=== PATIENT | male | born 1965 | race Caucasian/White ===

== ENCOUNTER 2019-04-23 12:44 | Emergency (ER) | payer BC ==
[~2019-04-23] VITALS: Ht 185.4 cm; Wt 104.3 kg
[2019-04-23] MEDS ORDERED: IV NORMAL SALINE 1000ML BAG 1,000 ML IV ONE (13:15)
--- NOTE | 2019-04-23 13:18 | PHYS DOC ---
Adult General Chief Complaint Chief Complaint: NEAR SYNCOPE HPI HPI Patient is a 53 year old male patient without history of medical problem who presents via EMS with complaining of almost passing out. Patient state he was at work bathroom and tries to have a bowel movement and felt dizzy and lightheaded and near-syncope without loss of consciousness or seizure and asked his coworker to help him. Patient states he had constipation and bloody stools yesterday. EMS reported that he had low blood pressure and IV fluid was started. Patient had strong history of drinking alcohol and smoking cigarettes. Review of Systems Review of Systems Constitutional: Denies fever or chills [] Eyes: Denies change in visual acuity, redness, or eye pain [] HENT: Denies nasal congestion or sore throat [] Respiratory: Denies cough or shortness of breath [] Cardiovascular: No additional information not addressed in HPI [] GI: Denies abdominal pain, nausea, vomiting, diarrhea, reports constipation [] : Denies dysuria or hematuria [] Musculoskeletal: Denies back pain or joint pain [] Integument: Denies rash or skin lesions [] Neurologic: Denies headache, focal weakness or sensory changes [] Endocrine: Denies polyuria or polydipsia [] All other systems were reviewed and found to be within normal limits, except as documented in this note. Current Medications Current Medications Current Medications Medications (Trade) Dose Ordered Sig/Jaden Start Time Stop Time Status Last Admin Dose Admin Fentanyl Citrate (Fentanyl 2ml Vial) 50 mcg 1X ONCE 04/23/19 14:30 04/23/19 14:31 DC Magnesium Sulfate 50 ml @ 25 mls/hr 1X ONCE 04/23/19 14:30 04/23/19 16:21 DC 04/23/19 14:41 25 MLS/HR Sodium Chloride 1,000 ml @ 1,000 mls/hr 1X ONCE 04/23/19 13:15 04/23/19 14:14 DC 04/23/19 13:30 1,000 MLS/HR Allergies Allergies Allergies Coded Allergies Type Severity Reaction Last Updated Verified No Known Drug Allergies 04/23/19 No Physical Exam Physical Exam Constitutional: Well developed, well nourished, mild distress, non-toxic appearance. [] HENT: Normocephalic, atraumatic, bilateral external ears normal, oropharynx moist, no oral exudates, nose normal. [] Eyes: PERRLA, EOMI, conjunctiva normal, no discharge. [] Neck: Normal range of motion, no tenderness, supple, no stridor. [] Cardiovascular:Heart rate regular rhythm, no murmur [] Lungs & Thorax: Bilateral breath sounds clear to auscultation [] Abdomen: Bowel sounds normal, soft, no tenderness, no masses, no pulsatile masses. Patient refused rectal exam. Skin: Warm, dry, no erythema, no rash. [] Back: No tenderness, no CVA tenderness. [] Extremities: No tenderness, no cyanosis, no clubbing, ROM intact, no edema. [] Neurologic: Alert and oriented X 3, normal motor function, normal sensory function, no focal deficits noted. [] Psychologic: Affect normal, judgement normal, mood normal. [] Current Patient Data Vital Signs Vital Signs Date Time Temp Pulse Resp B/P (MAP) Pulse Ox O2 Delivery O2 Flow Rate FiO2 04/23/19 15:58 108 20 94 04/23/19 12:44 98.5 122/76 (91) Room Air 98.5 Lab Values Laboratory Tests Test 04/23/19 12:50 04/23/19 14:27 White Blood Count 11.4 x10^3/uL (4.0-11.0) H Red Blood Count 5.69 x10^6/uL (4.30-5.70) Hemoglobin 16.9 g/dL (13.0-17.5) Hematocrit 49.6 % (39.0-53.0) Mean Corpuscular Volume 87 fL (79-100) Mean Corpuscular Hemoglobin 30 pg (25-35) Mean Corpuscular Hemoglobin Concent 34 g/dL (31-37) Red Cell Distribution Width 13.3 % (11.5-14.5) Platelet Count 292 x10^3/uL (140-400) Neutrophils (%) (Auto) 75 % (31-73) H Lymphocytes (%) (Auto) 19 % (24-48) L Monocytes (%) (Auto) 5 % (0-9) Eosinophils (%) (Auto) 1 % (0-3) Basophils (%) (Auto) 1 % (0-3) Neutrophils # (Auto) 8.5 x10^3/uL (1.8-7.7) H Lymphocytes # (Auto) 2.1 x10^3/uL (1.0-4.8) Monocytes # (Auto) 0.5 x10^3/uL (0.0-1.1) Eosinophils # (Auto) 0.2 x10^3/uL (0.0-0.7) Basophils # (Auto) 0.1 x10^3/uL (0.0-0.2) Prothrombin Time 12.7 SEC (11.7-14.0) Prothrombin Time INR 1.0 (0.8-1.1) Sodium Level 139 mmol/L (136-145) Potassium Level 3.7 mmol/L (3.5-5.1) Chloride Level 102 mmol/L (98-107) Carbon Dioxide Level 28 mmol/L (21-32) Anion Gap 9 (6-14) Blood Urea Nitrogen 15 mg/dL (8-26) Creatinine 1.1 mg/dL (0.7-1.3) Estimated GFR (Cockcroft-Gault) 70.3 BUN/Creatinine Ratio 14 (6-20) Glucose Level 168 mg/dL (70-99) H Calcium Level 8.9 mg/dL (8.5-10.1) Magnesium Level 1.4 mg/dL (1.8-2.4) L Total Bilirubin 0.6 mg/dL (0.2-1.0) Aspartate Amino Transferase (AST) 22 U/L (15-37) Alanine Aminotransferase (ALT) 42 U/L (16-63) Alkaline Phosphatase 69 U/L (46-116) Creatine Kinase 174 U/L (39-308) Troponin I Quantitative < 0.017 ng/mL (0.000-0.055) YA-Ale-L-Type Natriuretic Peptide 10 pg/mL (0-124) Total Protein 7.1 g/dL (6.4-8.2) Albumin 3.6 g/dL (3.4-5.0) Albumin/Globulin Ratio 1.0 (1.0-1.7) Lipase 548 U/L (73-393) H Urine Collection Type Unknown Urine Color [place] Urine Clarity Clear Urine pH 5.5 Urine Specific [place] >=1.030 Urine Protein 30 mg/dL (NEG-TRACE) Urine Glucose (UA) Negative mg/dL (NEG) Urine Ketones (Stick) Trace mg/dL (NEG) Urine Blood Negative (NEG) Urine Nitrite Negative (NEG) Urine Bilirubin Negative (NEG) Urine Urobilinogen Dipstick 1.0 mg/dL (0.2 mg/dL) Urine Leukocyte Esterase Trace (NEG) Urine RBC Occ /HPF (0-2) Urine WBC 1-4 /HPF (0-4) Urine Bacteria 0 /HPF (0-FEW) Urine Hyaline Casts Many /HPF Urine Mucus Marked /LPF Urine Opiates Screen Neg (NEG) Urine Methadone Screen Neg (NEG) Urine Barbiturates Neg (NEG) Urine Phencyclidine Screen Neg (NEG) Urine Amphetamine/Methamphetamine Neg (NEG) Urine Benzodiazepines Screen Neg (NEG) Urine Cocaine Screen Neg (NEG) Urine Cannabinoids Screen Neg (NEG) Urine Ethyl Alcohol Neg (NEG) Laboratory Tests 04/23/19 12:50 Laboratory Tests 04/23/19 12:50 EKG EKG EKG interpreted by me. EKG at 1252 showed sinus tachycardia at rate of 102, left atrial abnormality, nonspecific ST and T-wave abnormalities acute ST and T-wave elevation. Radiology/Procedures Radiology/Procedures [][facility] [address] [place] [address] IMAGING REPORT Signed PATIENT: CESAR LICONA ACCOUNT: [id number] : 1965 LOCATION: ER AGE: 53 SEX: M EXAM STATUS: PRE ER ORD. PHYSICIAN: JIMMY SEYMOUR MD REASON: abdominal pain and near syncope PROCEDURE: CT HEAD WO CONTRAST EXAM: Head CT without contrast. HISTORY: Near syncope. TECHNIQUE: Computed tomographic images of the head were obtained without contrast. *One or more of the following individualized dose reduction techniques were utilized for this examination: 1. Automated exposure control. 2. Adjustment of the mA and/or kV according to patient size. 3. Use of iterative reconstruction technique. COMPARISON: None. FINDINGS: There is no acute or subacute extra-axial or intraparenchymal hemorrhage. There is no mass effect or midline shift. There is no hydrocephalus. The tripp-white matter differentiation pattern is intact. There are chronic left lamina papyracea and inferior orbital wall fractures. There is ethmoid and maxillary sinus mucosal thickening with tiny mucous retention cysts. The mastoid air cells are clear. There is no suspicious calvarial lesion. IMPRESSION: No acute intracranial findings. Note is made that MRI is more sensitive for acute infarction. Electronically signed by: Verena Eugene MD (04/23/2019 1:33 PM) [place] [id number] DICTATED and SIGNED BY: VERENA EUGENE MD DATE: 04/23/[address] [address] IMAGING REPORT Signed PATIENT: CESAR LICONA ACCOUNT: [id number] : 1965 LOCATION: ER AGE: 53 SEX: M EXAM STATUS: PRE ER ORD. PHYSICIAN: JIMMY SEYMOUR MD REASON: abdominal pain and near-syncope 17 PROCEDURE: PORTABLE CHEST 1V EXAM: CHEST ONE VIEW. HISTORY: Abdominal pain, syncope. COMPARISON: None. FINDINGS: A frontal view of the chest is obtained. There are no confluent infiltrates. There is no pneumothorax or pleural effusion. The heart is not enlarged. IMPRESSION: 1. No confluent infiltrates. Electronically signed by: Ben Negron MD (04/23/2019 1:58 PM) [facility] DICTATED and SIGNED BY: GEETHA NEGRON MD DATE: 04/23/19 1358 [facility] [address] [place] [address] IMAGING REPORT Signed PATIENT: CESAR LICONA ACCOUNT: [id number] : 1965 LOCATION: ER AGE: 53 SEX: M EXAM STATUS: PRE ER ORD. PHYSICIAN: JIMMY SEYMOUR MD REASON: abdominal pain and near syncope PROCEDURE: CT ABDOMEN PELVIS WO CONTRAST EXAM: Abdomen and pelvis CT without intravenous contrast. HISTORY: Pain. TECHNIQUE: Computed tomographic images of the abdomen and pelvis were obtained without contrast. Multiplanar reformatting was performed. *One or more of the following individualized dose reduction techniques were utilized for this examination: 1. Automated exposure control. 2. Adjustment of the mA and/or kV according to patient size. 3. Use of iterative reconstruction technique. COMPARISON: None. FINDINGS: Evaluation of the lower thorax demonstrates basilar and posterior dependent atelectasis. There is central bronchial wall thickening suggesting the sequela of bronchitis. The heart is normal in size. There are chronic rib fractures. No hepatic lesion is seen. There is mild enlargement of the right hepatic lobe. There is trace perihepatic ascites. The gallbladder, pancreas and spleen are unremarkable. The stomach is distended with recently ingested bolus. The adrenal glands are unremarkable. There is no hydronephrosis or nephrolithiasis. There are prominent loops of small bowel with suspected wall thickening and surrounding mesenteric stranding within the left mid and lower abdomen. No clear transition point is seen to suggest obstruction. There is no appendicitis. There is no free air. The bladder is nearly empty. There is a small amount of free fluid within the pelvis. The aorta is normal in caliber. There are nonspecific mesenteric and retroperitoneal lymph nodes. There is no suspicious osseous lesion. IMPRESSION: 1. Prominent loops of small bowel predominantly within the left mid and lower abdomen, with surrounding fatty stranding and suspected wall thickening. This can be seen with acute enteritis. There is no clear transition point to suggest obstruction. There are nonspecific mesenteric lymph nodes which may be reactive in etiology. 2. Trace perihepatic ascites and small amount of free fluid within the pelvis. Electronically signed by: Verena Eugene MD (04/23/2019 1:38 PM) [place] [id number] DICTATED and SIGNED BY: VERENA EUGENE MD DATE: 04/23/19 1330 Course & Med Decision Making Course & Med Decision Making Pertinent Labs and Imaging studies reviewed. (See chart for details) Evaluation of patient in ER showed 53-year-old male patient brought in because of near syncopal episode after having a bowel movement. Patient had O2 sats of 90 with history of 2 pack cigarette smoking /day with improvement of O2 sat after starting oxygen. Patient treated with IV fluid with improvement of his condition. Patient had negative orthostatic vitals. Labs was unremarkable except for low magnesium and IV magnesium was given.. CT abdomen and pelvis showed enteritis. Patient had hemoglobin of 16.9 and refused rectal exam. Patient ambu lated without problem and wants to go home. Patient was advised to follow up with his primary care physician regarding enteritis and rectal bleeding. Patient was advised to quit drinking alcohol and smoking cigarettes. Dragon Disclaimer Dragon Disclaimer This electronic medical record was generated, in whole or in part, using a voice recognition dictation system. Departure Departure Impression: Primary Impression: Near syncope Additional Impressions: Hypomagnesemia Enteritis Disposition: HOME, SELF-CARE (at 1553) Condition: IMPROVED Patient Instructions: Hypomagnesemia, Syncope Additional Instructions: Drink plenty of liquids Follow-up with your primary care physician in 3-5 days Return to ER if not getting better Quit smoking and drinking alcohol Scripts Magnesium Oxide (MAGNESIUM OXIDE) 400 Mg Tablet 1 TAB PO BID, #14 TAB 0 Refills Prov: JIMMY SEYMOUR MD 04/23/19 Problem Qualifiers JIMMY SEYMOUR MD Apr 23, 2019 13:18
[2019-04-23 13:19] LABS: BASO # 0.1 x10^3/uL (0.0-0.2); BASO % 1 % (0-3); EOS # 0.2 x10^3/uL (0.0-0.7); EOS % 1 % (0-3); HEMATOCRIT 49.6 % (39.0-53.0); HEMOGLOBIN 16.9 g/dL (13.0-17.5); LYMPH # 2.1 x10^3/uL (1.0-4.8); LYMPH % 19 % (24-48); MEAN CORPUSCULAR HEMOGLOBIN 30 pg (25-35); MEAN CORPUSCULAR HGB CONC 34 g/dL (31-37); MEAN CORPUSCULAR VOLUME 87 fL (79-100); MONO # 0.5 x10^3/uL (0.0-1.1); MONO % 5 % (0-9); NEUT # 8.5 x10^3/uL (1.8-7.7); NEUT % 75 % (31-73); PLATELET COUNT 292 x10^3/uL (140-400); RED BLOOD COUNT 5.69 x10^6/uL (4.30-5.70); RED CELL DISTRIBUTION WIDTH 13.3 % (11.5-14.5); WHITE BLOOD COUNT 11.4 x10^3/uL (4.0-11.0)
[2019-04-23 13:30] LABS: PROTHROMBIN TIME PATIENT 12.7 SEC (11.7-14.0)
--- NOTE | 2019-04-23 13:36 | RAD ---
EXAM: Head CT without contrast. HISTORY: Near syncope. TECHNIQUE: Computed tomographic images of the head were obtained without contrast. *One or more of the following individualized dose reduction techniques were utilized for this examination: 1. Automated exposure control. 2. Adjustment of the mA and/or kV according to patient size. 3. Use of iterative reconstruction technique. COMPARISON: None. FINDINGS: There is no acute or subacute extra-axial or intraparenchymal hemorrhage. There is no mass effect or midline shift. There is no hydrocephalus. The tripp-white matter differentiation pattern is intact. There are chronic left lamina papyracea and inferior orbital wall fractures. There is ethmoid and maxillary sinus mucosal thickening with tiny mucous retention cysts. The mastoid air cells are clear. There is no suspicious calvarial lesion. IMPRESSION: No acute intracranial findings. Note is made that MRI is more sensitive for acute infarction. Electronically signed by: Verena Mortensen MD (04/23/2019 1:33 PM) [facility]
--- NOTE | 2019-04-23 13:41 | RAD ---
EXAM: Abdomen and pelvis CT without intravenous contrast. HISTORY: Pain. TECHNIQUE: Computed tomographic images of the abdomen and pelvis were obtained without contrast. Multiplanar reformatting was performed. *One or more of the following individualized dose reduction techniques were utilized for this examination: 1. Automated exposure control. 2. Adjustment of the mA and/or kV according to patient size. 3. Use of iterative reconstruction technique. COMPARISON: None. FINDINGS: Evaluation of the lower thorax demonstrates basilar and posterior dependent atelectasis. There is central bronchial wall thickening suggesting the sequela of bronchitis. The heart is normal in size. There are chronic rib fractures. No hepatic lesion is seen. There is mild enlargement of the right hepatic lobe. There is trace perihepatic ascites. The gallbladder, pancreas and spleen are unremarkable. The stomach is distended with recently ingested bolus. The adrenal glands are unremarkable. There is no hydronephrosis or nephrolithiasis. There are prominent loops of small bowel with suspected wall thickening and surrounding mesenteric stranding within the left mid and lower abdomen. No clear transition point is seen to suggest obstruction. There is no appendicitis. There is no free air. The bladder is nearly empty. There is a small amount of free fluid within the pelvis. The aorta is normal in caliber. There are nonspecific mesenteric and retroperitoneal lymph nodes. There is no suspicious osseous lesion. IMPRESSION: 1. Prominent loops of small bowel predominantly within the left mid and lower abdomen, with surrounding fatty stranding and suspected wall thickening. This can be seen with acute enteritis. There is no clear transition point to suggest obstruction. There are nonspecific mesenteric lymph nodes which may be reactive in etiology. 2. Trace perihepatic ascites and small amount of free fluid within the pelvis. Electronically signed by: Verena Mortensen MD (04/23/2019 1:38 PM) [place] [id number]
[2019-04-23 13:42] LABS: CALCIUM 8.9 mg/dL (8.5-10.1); CREATININE 1.1 mg/dL (0.7-1.3); GFR 70.3; POTASSIUM 3.7 mmol/L (3.5-5.1)
[2019-04-23 13:47] LABS: ALBUMIN 3.6 g/dL (3.4-5.0); MAGNESIUM 1.4 mg/dL (1.8-2.4); TOTAL BILIRUBIN 0.6 mg/dL (0.2-1.0); TOTAL PROTEIN 7.1 g/dL (6.4-8.2)
--- NOTE | 2019-04-23 13:59 | EKG ---
[facility] [address] [place] [address] Test Date: 2019-04-23 Test Time: 12:52:05 Pat Name: CESAR LICONA Department: Room: Gender: M Room Service Supervisor: BRITTNEY : 1965 Requested By: JIMMY SEYMOUR Order Number: [id number] Reading MD: Measurements Intervals [place] Rate: 101 P: 32 OR: 142 QRS: 32 QRSD: 90 T: 59 QT: 330 QTc: 434 Interpretive Statements SINUS TACHYCARDIA LEFT ATRIAL ABNORMALITY NON SPECIFIC ST-T ABNORMALITY (ELEVATION) ABNORMAL ECG No previous ECG available for comparison
--- NOTE | 2019-04-23 14:01 | RAD ---
EXAM: CHEST ONE VIEW. HISTORY: Abdominal pain, syncope. COMPARISON: None. FINDINGS: A frontal view of the chest is obtained. There are no confluent infiltrates. There is no pneumothorax or pleural effusion. The heart is not enlarged. IMPRESSION: 1. No confluent infiltrates. Electronically signed by: Ben Negron MD (04/23/2019 1:58 PM) [facility]
[2019-04-23] MEDS ORDERED: MAGNESIUM SULFATE 2GM 50 ML IV ONE (14:30)
[2019-04-23] MEDS ORDERED: fentaNYL PF VIAL 100 MCG/2 ML VIAL IVP ONE (14:30)
[2019-04-23 14:34] LABS: BILIRUBIN,URINE NEGATIVE (NEG); CLARITY,URINE CLEAR; COLOR,URINE AMBER; NITRITE,URINE NEGATIVE (NEG); PH,URINE 5.5; PROTEIN,URINE 30 mg/dL (NEG-TRACE)
[2019-04-23 14:40] LABS: BACTERIA,URINE 0 /HPF (0-FEW); HYALINE CASTS, URINE MANY /HPF
[2019-04-23 14:41] LABS: RBC,URINE OCC /HPF (0-2)
[2019-04-23 14:49] LABS: BARBITURATES NEG (NEG); BENZODIAZEPINES NEG (NEG); CANNABINOIDS NEG (NEG); COCAINE NEG (NEG); METHADONE NEG (NEG); OPIATES NEG (NEG); PHENCYCLIDINE NEG (NEG)
[2019-04-23 14:51] LABS: AMPHETAMINE/METHAMPHETAMINE NEG (NEG)
[2019-04-23] MEDS ORDERED: MAGN400T5 PO (15:55)
[2019-04-23 15:58] VITALS: BP 104/60
== END 2019-04-23 16:09 | disposition home or self-care (01) ==
LOC: ER 12:44
DX: R55 Syncope and collapse (principal); E83.42 Hypomagnesemia; K52.9 Noninfective gastroenteritis and colitis, unspecified; R42 Dizziness and giddiness; F17.210 Nicotine dependence, cigarettes, uncomplicated
CPT/HCPCS: 36415; 70450; 71045; 74176; 80053; 80307; 81001; 82550; 83690; 83735; 83880; 84484; 85025; 85610; 87086; 93005; 96361; 96365; 99285; J3475; J7030